=== PATIENT | female | born 1990 | race Caucasian/White ===

== ENCOUNTER 2019-11-13 15:02 | Observation (INO) ==
[2019-11-13] MEDS ORDERED: Piperacillin/Tazobac ADVAN 3.375 GM in NS 0.9% 100 ml BAG 100 ML IVPB ONE ×2 (17:28→19:15)
[2019-11-13] MEDS ORDERED: NS 0.9% 1000 ml BAG 1,000 ML IV ONE (17:29)
[2019-11-13 18:08] LABS: ABS Eosinophils 0.1 10^3/ul (0-0.6); ABS Lymphocytes 1.2 10^3/ul (1.0-4.8); ABS Monocytes 0.4 10^3/ul (0-0.8); ABS Neutrophils 5.2 10^3/ul (1.5-7.7); Eosinophil % 1.9 %; Hematocrit 36 % (35-47); Hemoglobin 12.4 g/dL (12.0-16.0); Lymphocyte % 17.7 %; Mean Corpuscular HGB Conc 35 g/dL (31-36); Mean Corpuscular Hemoglobin 33 pg (27-31); Mean Corpuscular Volume 95 fL (80-97); Mean Platelet Volume 8.9 fL (7.4-10.4); Platelet Count 200 10^3/uL (150-450); Red Blood Count 3.81 10^6 /uL (3.70-4.87); Red Cell Distribution Width 13 % (10-15); White Blood Count 6.9 10^3/uL (3.5-10.8)
[2019-11-13] MEDS ORDERED: Piperacillin/Tazobac 3.375 GM BAG ONE (18:09)
[2019-11-13 18:14] LABS: INR 1.12 (0.82-1.09)
[2019-11-13] MEDS ORDERED: Clindamycin 600 MG/D5W BAG 600 MG/50 ML BAG IV ONE (18:23)
[2019-11-13 18:28] LABS: Albumin 4.2 g/dL (3.2-5.2); Albumin/Globulin Ratio 1.5 (1-3); Calcium 9.1 mg/dL (8.6-10.3); EGFR African American 93.8 (>60); EGFR Non-African American 77.5 (>60); Globulin 2.8 g/dL (2-4); Potassium 3.7 mmol/L (3.5-5.0); Total Bilirubin 0.3 mg/dL (0.2-1.0)
[2019-11-13] MEDS ORDERED: Ondansetron 4 mg VIAL 2 MG/ML 2 ml VIAL IV PRN (18:40)
[2019-11-13] MEDS ORDERED: Senna TAB 8.6 mg TAB PO PRN (18:40)
[2019-11-13] MEDS ORDERED: Zosyn per Pharmacy NOTE FOLLOW UP SCH (19:00)
[2019-11-13] MEDS: ZOSYN 3.375 GM Q8H per EXTENDED INFUSION IV SCH (21:59)
[2019-11-14] MEDS ORDERED: Piperacillin/Tazobac ADVAN 3.375 GM in NS 0.9% 100 ml BAG 100 ML IVPB ONE ×2 (01:00→02:00)
[2019-11-14] MEDS: Clindamycin 600 MG/D5W BAG 600 MG/50 ML BAG IV SCH ×3 (05:05→21:31)
[2019-11-14] MEDS: ZOSYN 3.375 GM Q8H per EXTENDED INFUSION IV SCH ×3 (05:42→22:12)
[2019-11-14 06:55] LABS: ABS Eosinophils 0.2 10^3/ul (0-0.6); ABS Lymphocytes 1.5 10^3/ul (1.0-4.8); ABS Monocytes 0.4 10^3/ul (0-0.8); ABS Neutrophils 3.2 10^3/ul (1.5-7.7); Eosinophil % 3.6 %; Hematocrit 32 % (35-47); Hemoglobin 11.1 g/dL (12.0-16.0); Lymphocyte % 27.6 %; Mean Corpuscular HGB Conc 34 g/dL (31-36); Mean Corpuscular Hemoglobin 33 pg (27-31); Mean Corpuscular Volume 96 fL (80-97); Mean Platelet Volume 9.3 fL (7.4-10.4); Platelet Count 156 10^3/uL (150-450); Red Blood Count 3.37 10^6 /uL (3.70-4.87); Red Cell Distribution Width 13 % (10-15); White Blood Count 5.3 10^3/uL (3.5-10.8)
[2019-11-14 07:17] LABS: BUN/Creatinine Ratio 10.7 (8-20); Calcium 8.2 mg/dL (8.6-10.3); EGFR African American 97.7 (>60); EGFR Non-African American 80.7 (>60); Potassium 4.4 mmol/L (3.5-5.0)
[2019-11-14] MEDS ORDERED: oxyCODONE/Acetamin 5/325 mg TAB PO PRN (09:27)
[2019-11-14] MEDS: oxyCODONE/Acetamin 5/325 mg TAB PO PRN ×2 (10:06→18:49)
[2019-11-14 21:27] LABS: C Reactive Protein 17.2 mg/L (<8.01)
[2019-11-15] MEDS: Clindamycin 600 MG/D5W BAG 600 MG/50 ML BAG IV SCH (05:25)
[2019-11-15] MEDS: ZOSYN 3.375 GM Q8H per EXTENDED INFUSION IV SCH (06:13)
[2019-11-15 06:50] LABS: ABS Eosinophils 0.2 10^3/ul (0-0.6); ABS Lymphocytes 1.3 10^3/ul (1.0-4.8); ABS Monocytes 0.2 10^3/ul (0-0.8); ABS Neutrophils 1.3 10^3/ul (1.5-7.7); Eosinophil % 5.5 %; Hematocrit 32 % (35-47); Hemoglobin 11.2 g/dL (12.0-16.0); Lymphocyte % 42.4 %; Mean Corpuscular HGB Conc 35 g/dL (31-36); Mean Corpuscular Hemoglobin 33 pg (27-31); Mean Corpuscular Volume 95 fL (80-97); Mean Platelet Volume 9.4 fL (7.4-10.4); Nucleated Red Blood Cells % 0.1; Platelet Count 184 10^3/uL (150-450); Red Blood Count 3.36 10^6 /uL (3.70-4.87); Red Cell Distribution Width 13 % (10-15); White Blood Count 3.1 10^3/uL (3.5-10.8)
[2019-11-15] MEDS: oxyCODONE/Acetamin 5/325 mg TAB PO PRN (07:10)
[2019-11-15 08:46] VITALS: BP 117/75
== END 2019-11-15 12:00 | disposition home or self-care (01) ==
LOC: ED 15:02 → MED 15:02
PROVIDERS: ADMIT Internal Medicine; ATTEND Internal Medicine